=== PATIENT | male | born 1945 | race Caucasian/White ===

== ENCOUNTER 2021-10-26 14:14 | Inpatient (IN) ==
[2021-10-26] MEDS: Acetaminophen 325 MG TABLET PO PRN (16:23)
[2021-10-26] MEDS: Apixaban 5 MG TABLET PO SCH (20:04)
[2021-10-27 05:43] LABS: Basophils % 0.3 %; Eosinophils # 0.2 K/mcL (0.0-0.6); Hematocrit 40.9 % (37.5-50.1); Hemoglobin 13.9 g/dL (12.9-16.9); Immature Granulocytes % 0.3 % (0-4); Lymphocytes # 6.1 K/mcL (0.6-4.6); Mean Corpuscular Hemoglobin 35.5 pg (28.0-33.3); Mean Corpuscular Volume 104.6 fL (83.0-100.0); Mean Platelet Volume 9.3 fL (9.4-12.4); Monocytes # 0.2 K/mcL (0.0-1.3); Platelet Count 196 K/mcL (140-400); Red Blood Count 3.91 M/mcL (4.19-5.50); Red Cell Distribution Width 13.8 % (11.5-14.5); White Blood Count 10.8 K/mcL (4.3-11.1)
[2021-10-27 05:57] LABS: Alanine Aminotransferase 30 Units/L (7-52); Albumin 3.2 g/dL (3.5-5.7); Albumin/Globulin Ratio 1.8 (1.1-2.2); Alkaline Phosphatase 91 Units/L (34-104); Aspartate Amino Transferase 15 Units/L (13-39); BUN/Creatinine Ratio 34 (6-26); Bilirubin,Total 0.6 mg/dL (0.3-1.0); Blood Urea Nitrogen 31 mg/dL (8-23); Calcium 8.2 mg/dL (8.6-10.3); Carbon Dioxide 28 mEq/L (23-29); Chloride 106 mEq/L (98-107); Globulin 1.8 g/dL (2.4-3.5); Glucose 90 mg/dL (70-105); Magnesium 1.9 mg/dL (1.6-2.6); Osmolality,Calculated 290 (280-300); Sodium 137 mEq/L (136-145); eGFR For African Americans > 60 (> 60); eGFR For Non-African Americans > 60 (> 60)
[2021-10-27 07:27] LABS: Large Platelets Present (Not Present); Reactive Lymphocytes Present (Not Present); Smudge Cells Present (Not Present)
[2021-10-27 07:29] LABS: Neutrophils # 4.4 K/mcL (1.6-8.9)
[2021-10-27 07:34] LABS: Platelet Estimate Normal (Normal)
[2021-10-27] MEDS: Metoprolol XL (24 HR) Succ 25 MG TAB.ER.24H PO SCH (09:16)
[2021-10-27] MEDS: lisinopriL 5 MG TABLET PO SCH (09:17)
[2021-10-27] MEDS: Apixaban 5 MG TABLET PO SCH ×2 (09:24→20:35)
[2021-10-27] MEDS: Aspirin Enteric Coated 81 MG Tablet PO SCH (09:25)
[2021-10-27] MEDS: Acetaminophen 325 MG TABLET PO PRN ×2 (09:25→20:35)
[2021-10-28 05:06] LABS: Alanine Aminotransferase 30 Units/L (7-52); Albumin 3.2 g/dL (3.5-5.7); Albumin/Globulin Ratio 1.8 (1.1-2.2); Alkaline Phosphatase 93 Units/L (34-104); Aspartate Amino Transferase 16 Units/L (13-39); BUN/Creatinine Ratio 30 (6-26); Bilirubin,Total 0.7 mg/dL (0.3-1.0); Blood Urea Nitrogen 30 mg/dL (8-23); Calcium 8.3 mg/dL (8.6-10.3); Carbon Dioxide 31 mEq/L (23-29); Chloride 105 mEq/L (98-107); Globulin 1.8 g/dL (2.4-3.5); Glucose 101 mg/dL (70-105); Osmolality,Calculated 292 (280-300); Potassium 4.8 mEq/L (3.5-5.1); Sodium 138 mEq/L (136-145); eGFR For African Americans > 60 (> 60); eGFR For Non-African Americans > 60 (> 60)
[2021-10-28] MEDS: Acetaminophen 325 MG TABLET PO PRN ×2 (09:06→21:16)
[2021-10-28] MEDS: Apixaban 5 MG TABLET PO SCH ×2 (09:06→21:16)
[2021-10-28] MEDS: Metoprolol XL (24 HR) Succ 25 MG TAB.ER.24H PO SCH (09:07)
[2021-10-28] MEDS: Aspirin Enteric Coated 81 MG Tablet PO SCH (09:07)
[2021-10-28] MEDS: lisinopriL 5 MG TABLET PO SCH (09:08)
[2021-10-29] MEDS: Aspirin Enteric Coated 81 MG Tablet PO SCH (08:05)
[2021-10-29] MEDS: Acetaminophen 325 MG TABLET PO PRN ×2 (08:06→22:21)
[2021-10-29] MEDS: Metoprolol XL (24 HR) Succ 25 MG TAB.ER.24H PO SCH (08:07)
[2021-10-29] MEDS: Apixaban 5 MG TABLET PO SCH ×2 (08:07→22:21)
[2021-10-29] MEDS: lisinopriL 5 MG TABLET PO SCH (08:07)
[2021-10-30 07:18] VITALS: BP 113/65; PULSE 70; RESP 14; TEMP 98.3; O2SAT 98
[2021-10-30] MEDS: Acetaminophen 325 MG TABLET PO PRN (08:57)
[2021-10-30] MEDS: Aspirin Enteric Coated 81 MG Tablet PO SCH (08:57)
[2021-10-30] MEDS: Apixaban 5 MG TABLET PO SCH (08:58)
[2021-10-30] MEDS ORDERED: Spironolactone 25 MG TABLET PO SCH ×2 (09:00)
[2021-10-30] MEDS: Metoprolol XL (24 HR) Succ 25 MG TAB.ER.24H PO SCH (09:04)
[2021-10-30] MEDS: lisinopriL 5 MG TABLET PO SCH (09:04)
== END 2021-10-30 14:45 | disposition home or self-care (01) | DRG 291 ==
LOC: INPGRE 14:20
PROVIDERS: ADMIT Family Medicine; ATTEND Family Medicine